=== PATIENT | male | born 1955 | race African-American/Black ===

== ENCOUNTER 2020-04-02 16:26 | Inpatient (IN) | payer OTHER ==
[~2020-04-02] VITALS: Ht 172.7 cm; Wt 68.9 kg
[2020-04-02 16:27] VITALS: BP 118/66
[2020-04-02 16:57] LABS: HCO3 25.6 mmol/L (22.0-26.0); PCO2 40.6 mmHg (35.0-45.0); PO2 74.1 mmHg (80.0-100.0); pH 7.417 (7.360-7.450); sO2 95.1 % (92.0-98.0)
[2020-04-02 17:01] LABS: ABSOLUTE NEUTROPHILS 3.7 thou/uL (1.4-8.2); BASOPHILS 0.2 % (0.0-2.0); HEMATOCRIT 38.5 % (42.0-52.0); HEMOGLOBIN 12.6 gm/dL (14.0-18.0); LYMPHOCYTES 11.1 % (24.0-44.0); MCH 30.7 pg (26.0-34.0); MCHC 32.7 g/dL (28.0-37.0); MCV 93.8 fL (80.0-100.0); MONOCYTES 13.7 % (1.0-8.0); PLATELET COUNT 166 thou/uL (150-400); RDW 13.2 % (10.5-14.5)
[2020-04-02 17:06] LABS: APTT 27.5 Seconds (24.5-32.8); PROTIME 10.5 Seconds (9.3-11.4)
[2020-04-02 17:08] LABS: CALCIUM 8.4 mg/dL (8.5-10.1); CREATININE 1.9 mg/dL (0.7-1.3); POTASSIUM 4.3 mmol/L (3.5-5.1)
[2020-04-02 17:25] LABS: ALBUMIN 2.8 g/dL (3.4-5.0); TOTAL BILIRUBIN 0.7 mg/dL (0.2-1.0); TOTAL PROTEIN 8.6 g/dL (6.4-8.2); TROPONIN-I 0.11 ng/mL (<0.06)
[2020-04-02 19:02] VITALS: BP 110/56
[2020-04-02 19:26] VITALS: BP 110/56
[2020-04-02 20:00] VITALS: BP 115/63
--- NOTE | 2020-04-02 22:08 | NUR ---
PT ADMITTED THROUGH ED FROM [facility]. PT COVID POSITIVE 03/24/20 AT FACILITY. CUSTODIAL REPORTED PT HAD FEVER AND LOW O2 SAT. PT HAD RECENTLY BEEN AT [facility] FOR COVID PNEUMONIA. LUNGS COARSE, O2 PER 7L, INCREASED RR. RIGID BUE AND BLE. PT ABLE TO VERBALIZE NAME AND ANSWER AT TIMES YES OR NO. PT ONLY ALERT TO SELF. NPO, INCONTINENT, BED ALARM ON. IVF INTACT.
[2020-04-02] MEDS ORDERED: TYLENOL325 M1 PO (22:17)
[2020-04-02] MEDS ORDERED: NORVASC10 MG PO (22:18)
[2020-04-02] MEDS ORDERED: LIPITOR10 MG PO (22:19)
[2020-04-02] MEDS ORDERED: ADULT ASPIRIN R81 MG PO (22:19)
[2020-04-02] MEDS ORDERED: GABAPENTIN800 M1 PO (22:20)
[2020-04-02] MEDS ORDERED: MELOXICAM7.5 MG PO (22:21)
[2020-04-02] MEDS ORDERED: RISPERDAL0.5 MG PO (22:21)
[2020-04-02] MEDS ORDERED: DESYREL150 MG PO (22:22)
[2020-04-02] MEDS ORDERED: SERTRALINE HCL100 MG PO (22:22)
[2020-04-02] MEDS ORDERED: ASPIR-TRIN325 MG PO (22:23)
[2020-04-02] MEDS ORDERED: ZINC SULFATE220 MG PO (22:24)
[2020-04-02] MEDS ORDERED: VITAMIN D (22:27)
[2020-04-02] MEDS ORDERED: VITAMIN C500 M2 PO (22:28)
--- NOTE | 2020-04-02 23:28 | NUR ---
PT NPO NOT TAKING ORAL SCHEDULED MEDS, NOT GIVING REMDESIVIR PER ELEVATED LFT PER PHARMACY.
[2020-04-03] VITALS (10 sets, daily range): BP systolic 107–121; BP diastolic 67–79
--- NOTE | 2020-04-03 01:30 | NUR ---
O2 PER NC INCREASED TO 10L BY RESPIRATORY 02 SAT 91%.
[2020-04-03 05:47] LABS: ABSOLUTE NEUTROPHILS 4.7 thou/uL (1.4-8.2); BASOPHILS 0.2 % (0.0-2.0); HEMATOCRIT 36.3 % (42.0-52.0); HEMOGLOBIN 11.7 gm/dL (14.0-18.0); LYMPHOCYTES 10.4 % (24.0-44.0); MCH 30.7 pg (26.0-34.0); MCHC 32.3 g/dL (28.0-37.0); MCV 94.9 fL (80.0-100.0); MONOCYTES 6.7 % (1.0-8.0); PLATELET COUNT 164 thou/uL (150-400); POLYS 82.7 % (36.0-66.0); RBC 3.82 mil/uL (4.50-6.00); RDW 13.3 % (10.5-14.5); WBC 5.7 thou/uL (4.0-11.0)
[2020-04-03 05:59] LABS: URINE BILIRUBIN NEGATIVE (Negative); URINE BLOOD 2+ (Negative); URINE CLARITY CLEAR; URINE COLOR YELLOW; URINE GLUCOSE-RANDOM* NEGATIVE (Negative); URINE KETONES NEGATIVE (Negative); URINE LEUKOCYTES-REFLEX NEGATIVE (Negative); URINE NITRITE-REFLEX NEGATIVE (Negative); URINE PROTEIN (DIPSTICK) 3+ (Negative); URINE SPECIFIC GRAVITY >= 1.030 (1.005-1.035)
[2020-04-03 06:34] LABS: CASTS None Seen /LPF (None Seen); SQUAMOUS 0-3 Few /LPF (0-3)
[2020-04-03 06:35] LABS: BACTERIA-REFLEX 1-9 Few /HPF (None Seen); CRYSTALS None Seen /LPF (None Seen); MUCUS 4-6 Moderate strn/LPF (None Seen); URINE RBC 0-2 Rare /HPF (0-2); URINE WBC-REFLEX 0-5 Rare /HPF (0-5)
[2020-04-03 06:57] LABS: ALBUMIN 2.4 g/dL (3.4-5.0); CALCIUM 8.1 mg/dL (8.5-10.1); CREATININE 1.9 mg/dL (0.7-1.3); POTASSIUM 4.5 mmol/L (3.5-5.1); TOTAL BILIRUBIN 0.4 mg/dL (0.2-1.0); TOTAL PROTEIN 7.9 g/dL (6.4-8.2)
--- NOTE | 2020-04-03 07:01 | EKG ---
[place] [address] [facility] [place] [address] ELECTROCARDIOGRAM REPORT Name: BEVERLY COLE Room #: 352-P ADM IN M.R.#: [id number] Admission: 04/02/20 Attend Phys: Ivan Garza MD Discharge: Date of : 57 Report #: [id number] [facility] ED Test Date: 2020-04-02 Test Time: 16:49:34 Pat Name: BEVERLY COLE Department: Room: [facility] Gender: M Dandy Tender: kf : 1955 Requested By: Rajeev Menon Order Number: [id number] : Barry Johnson Measurements Intervals Miller Rate: 75 P: 1 OH: 189 QRS: -36 QRSD: 92 T: -5 QT: 368 QTc: 411 Interpretive Statements Sinus rhythm Atrial premature complex Left ventricular hypertrophy Borderline T abnormalities, inferior leads No previous ECG available for comparison Electronically Signed On 04-03-2020 7:00:51 HIDE SHAKER by Barry Johnson [email or web address] <ELECTRONICALLY SIGNED> By: Barry Johnson MD, [facility] 04/03/20 0700 [id number] [id number] Barry Johnson MD, FACC /EPI
[2020-04-03 10:36] LABS: ALBUMIN 2.4 g/dL (3.4-5.0); CALCIUM 7.8 mg/dL (8.5-10.1); CREATININE 1.6 mg/dL (0.7-1.3); DIRECT BILIRUBIN 0.2 mg/dL (<0.1-0.2); PHOSPHORUS 3.9 mg/dL (2.5-4.9); POTASSIUM 4.1 mmol/L (3.5-5.1); TOTAL BILIRUBIN 0.5 mg/dL (0.2-1.0); TOTAL PROTEIN 7.2 g/dL (6.4-8.2)
[2020-04-03 12:01] LABS: BE(vivo) 1.5 mmol/L (-2 to +3); PCO2 40.5 mmHg (35.0-45.0); pH 7.425 (7.360-7.450); sO2 70.3 % (92.0-98.0)
--- NOTE | 2020-04-03 13:21 | NUR ---
INITIAL ASSESSMENT: Received consult. NITISH reviewed chart and spoke with nursing and attending physician. Pt was admitted from [facility] due to COVID pneumonia. Pt had positive test on 03/24. Pt place in Enhanced Isolation. Pt is afebrile and on 10-15L of O2. Pt placed on bipap earlier today. Pt is on IV abx and IV steroids. PT has been started on Remdesivir and Ivermectin. Pt with hx of dementia. NITISH spoke with pt's brother, Jairo, via phone. Introduced role of NITISH. Pt has lived at [facility] for about a year. Pt was living at [facility] prior to moving to [facility]. Pt's brother states that pt has been estranged from his family. Pt with hx of ETOH abuse. 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 Pt is and has grown children. Pt has been homeless. Pt has not had contact with his family for a number of years. Pt's brother, Jairo, is involved and supportive. Pt's friend, Chiara, listed on face sheet. Jairo requests this info to be removed as Chiara is not involved in pt's life. NITISH spoke with registration to have face sheet updated. Faxed info to registration. NITISH updated pt's nurse. NITISH faxed clinical info to [facility] for review. NITISH spoke with EVERARDO Frausto at [facility] to provide update. Plan is for pt to return to [facility] when medically stable. NITISH is following to assist as needed with discharge planning.
--- NOTE | 2020-04-03 17:09 | NUR ---
PT ARRIVED TO THE ICU AT 1645. PT WAS ACCOMPANIED BY RT, RN AND SUPERINTENDENT AMMUNITION STORAGE. PT ON 100% BIPAP. ORDER FOR CENTRAL LINE RECEIVED FROM JUAN. ARSALANZAC MARTINEZ WAS GIVEN ICU TELEPHONE NUMBER, PT PRIVACY CODE AND EXPLAINED VISITATION POLICIES.
[2020-04-03 17:23] LABS: BE(vivo) 0.4 mmol/L (-2 to +3); HCO3 24.6 mmol/L (22.0-26.0); PO2 144.5 mmHg (80.0-100.0); pH 7.429 (7.360-7.450); sO2 98.9 % (92.0-98.0)
--- NOTE | 2020-04-03 17:27 | NUR ---
RN ASSUMED PT'S CARE AT 0700AM, PT IS A&OX1 ( PERSON), PT IS CONFUSED AT TIME, PT CAN FOLLOW SOME COMMANDS, RN HAD CALLED HOSPITAL DR TO REPORT PT'S LOW O2SAT WITH O2 10L/MIN/NC, AND ABNORMAL ABG PO2 36 ( VERY LOW), NEW ORDER RECEIVED ,PT STARTED BIPAP WITH O2 100%, PEEP 8.0, LASIX 40MG IV X1 TIME, PT'S O2SAT KEEP AT 92-95% AT MOST OF TIME, BUT PT DE-SAT AT TIME, PT TRANSFERED TO ICU BED 236 AT 1700PM, RN HAD CALLED PT'S FAMILY TO UPDAT PT'S INFORMATION.
--- NOTE | 2020-04-03 20:48 | NUR ---
VAT CONSULTED FOR CVAD.PT VERY RESTLESS, HAD ASSISTANCE POSITIONING PT FOR CVAD. PT'S LABS,MEDS,HX,ORDER AND CONSENT VERIFIED. LIJ WAS WIDLEY PATENT WITH USG, MEASURED 28%. 25CM 6FR TL JACC INSERTED 7CM EXTERNAL THEN DID 1ST CXR LINE CROSSED MIDLINE, POWER FLUSHED TO REPOSITION 2ND CXR SAME RESULTS. 3RD REPOSITION WITH POWER FLUSH,3RD CXR JUNCTION OF SVC. RELEASED FOR IMMEDIATE USE PER PROTOCOL.
--- NOTE | 2020-04-03 22:58 | HC ---
[facility] [place] [address] CONSULTATION Name: BEVERLY COLE Room #: 236-P ADM IN M.R.#: [id number] Admission: 04/02/20 Attend Phys: Ivan Garza MD Discharge: Date of : 57 Report #: [id number] THIS REPORT FOR: cc: FAM - Family physician unknown FAM - Family physician unknown Mukul Rowe MD ~ DATE OF SERVICE: 04/02/2020 INFECTIOUS DISEASE CONSULTATION REASON FOR CONSULTATION: I was asked to evaluate concerning COVID-19 pneumonia and respiratory failure. HISTORY OF PRESENT ILLNESS: The patient is a 64-year-old transferred from [facility] memory unit where he is cared for due to his dementia. Diagnosed with COVID-19 on 03/24/2020. He had progressive shortness of breath and noted to be hypoxic on 04/02/2020, therefore, brought into the Emergency Room for further evaluation. The patient was unable to give me further details. Review of the chart and discussed with nursing staff. He has had minimal cough. No hemoptysis. No nausea, vomiting or diarrhea. Unclear if he has had much headache. He has had no pleuritic chest pain, placed on high flow oxygen through the Emergency Room. Hemodynamically, he has remained stable. He did have acute kidney injury and evidence of hepatitis. No prior history of such. Unclear if he has been vaccinated. REVIEW OF SYSTEMS: A 14-point review of system was negative other than what has been described above. ALLERGIES: None known. MEDICATIONS: As noted on his MAR, which was reviewed. PAST MEDICAL HISTORY: Dementia, hypertension. FAMILY HISTORY: Not available. SOCIAL HISTORY: Currently unknown. He is a smoker of cigarettes and uses much alcohol. Currently, he is not as he is institutionalized. PHYSICAL EXAMINATION: VITAL SIGNS: He was afebrile and hemodynamically stable. He was on 6 liters of oxygen per nasal cannula. SKIN: Without rash or decubitus. No palpable adenopathy, was of normal weight. HEENT: Eyes without scleral icterus. NECK: Supple. [facility] [address] [place] [address] CONSULTATION Name: BEVERLY COLE Basilia Room #: 236-P ADM IN M.R.#: [id number] Admission: 04/02/20 Attend Phys: Ivan Garza MD Discharge: Date of : 57 Report #: [id number] LUNGS: Clear anteriorly with coarse breath sounds posteriorly with no consolidation. Most of his changes were in the bases. HEART: Regular, without murmur, gallop or rub. ABDOMEN: Soft, nontender, no hepatosplenomegaly or mass appreciated. BACK: Nontender with no CVA tenderness elicited. EXTREMITIES: Without clubbing, cyanosis or edema. External genitalia with no mass or lesion. Had an indwelling Saenz catheter in place. He was able to move all extremities. PSYCHIATRIC: Mood appeared calm. LABORATORY STUDIES: Reviewed. MICROBIOLOGY: Reviewed. IMAGING: Chest x-ray reviewed. IMPRESSION: A 64-year-old with underlying dementia with bilateral pulmonary infiltrates, COVID-19 pneumonia and respiratory failure, suspect developing severe acute respiratory syndrome. Other consideration would be a component of aspiration and healthcare-associated pneumonia. He has acute kidney injury and evidence of hepatitis. RECOMMENDATION: We will continue with broad-spectrum antibiotic coverage. Due to his COVID-19 diagnosis 9 days ago, we will treat for rapidly progressive respiratory failure in the setting of COVID-19. We will use anti-inflammatory and antiviral therapy. We will monitor his renal function and liver function tests daily. He is at risk for further respiratory decline. He will be maintained on the COVID isolation unit for fluid management, follow up laboratory studies and chest x-ray. <ELECTRONICALLY SIGNED> By: Mukul Rowe MD 04/03/20 2258 [id number] 2253 Mukul Rowe MD /nt
[2020-04-04] VITALS (72 sets, daily range): BP systolic 98–138; BP diastolic 55–84
[2020-04-04 05:07] LABS: HEMOGLOBIN 11.1 gm/dL (14.0-18.0); MCHC 31.8 g/dL (28.0-37.0); MCV 94.4 fL (80.0-100.0); RBC 3.71 mil/uL (4.50-6.00); WBC 14.8 thou/uL (4.0-11.0)
[2020-04-04 05:32] LABS: ALBUMIN 2.5 g/dL (3.4-5.0); CALCIUM 8.4 mg/dL (8.5-10.1); CREATININE 1.6 mg/dL (0.7-1.3); DIRECT BILIRUBIN 0.1 mg/dL (<0.1-0.2); PHOSPHORUS 4.2 mg/dL (2.6-4.7); POTASSIUM 3.9 mmol/L (3.5-5.1); TOTAL BILIRUBIN 0.3 mg/dL (0.2-1.0); TOTAL PROTEIN 7.8 g/dL (6.4-8.2)
[2020-04-04 07:09] LABS: HIV ANTIBODY Non Reactive (Non Reactive)
--- NOTE | 2020-04-04 09:07 | NUR ---
SPOKE WITH PT'S BROTHER, JUAN, AND PT'S SISTER HARRISON ON CONFERENCE CALL. UPDATE PROVIDED WITH REASSURANCES AND EMOTIONAL SUPPORT. HARRISON STATED SHE WOULD TRY TO OBTAIN AN IPHONE FROM A FAMILY MEMBER TO ENABLE A FACETIME VISIT.
--- NOTE | 2020-04-04 09:56 | NUR ---
WOUND CONSULT; THE PATIENT IS IN ICU. CURRENTLY IN RESTRAINTS. THE PATIENT IS ABLE TO COMMUNICATE AT A LOW LEVEL AND CAN ASSIST WITH TURNING TO A DEGREE. THERE ARE MULTIPLE AREAS CONSISTANT WITH DEEP TISSUE INJURY. DESCOLORED, WITH IRREGUALAR BOARDERS. THESE AREAS ARE INTACT. tHE RN TODAY NOTED A SCROTUM WOUND. MY ASSESSMENT OF THE SCRTUM WAS NEGATIVE. THE SCROTUM ARE HAS A GREAT FUNGAL ODOR. I DISCUSSED WITH THE RN ABOUT WARM SOAPY WATER CLEANING OF THE SCROTUM, DRY COMPLETLY REPEAT DAILY. RECOMMENDATIONS; -Q2H TURNING -BARRIER CREAM TO SACRUM/BUTTOCKS BID/PRN -WARM SOAPY WATER TO THE SCROTUM,DRY COMPLETLY/DAILY,PRN DISCUSSED WITH RN
--- NOTE | 2020-04-04 10:43 | NUR ---
chart review. unable to visit with pt rt converse on ppe, and he requiring bipap support. noted he from [facility]. cm provided verbal update to jina " oh before at [facility] he was told has covid but did not start any tx for him and he got sick then was sent to you. he was completely independent prior to dx of covid"/cesar. no anticipated dc over the weekend, will cont following as needed for dc needs.
--- NOTE | 2020-04-04 17:33 | NUR ---
PT ON OPTIFLOW AT MAX SETTINGS. TOLERATING FAIRLY, BUT MAY NEED BIPAP AT NIGHT. PT PLACED ON A MODIFIED DIET DUE TO SWALLOWING IMPAIRMENT. DR. PRATT ORDERED TPN TO SUPPLEMENT HIS NUTRITION. PT IS AWAKE AND ALERT, ASKING FOR SPRITE OR 7UP. RESTRAINTS REMAIN DUE TO PT INTERFERENCE WITH LINES/TUBES. OVERALL, PT PROGRESSING TOWARD GOALS.
[2020-04-05] VITALS (95 sets, daily range): BP systolic 125–155; BP diastolic 61–85
[2020-04-05 04:37] LABS: HEMATOCRIT 34.1 % (42.0-52.0); HEMOGLOBIN 10.8 gm/dL (14.0-18.0); MCH 30.2 pg (26.0-34.0); MCHC 31.7 g/dL (28.0-37.0); MCV 95.4 fL (80.0-100.0); RBC 3.57 mil/uL (4.50-6.00); RDW 13.4 % (10.5-14.5); WBC 13.5 thou/uL (4.0-11.0)
[2020-04-05 04:59] LABS: ALBUMIN 2.4 g/dL (3.4-5.0); CALCIUM 8.4 mg/dL (8.5-10.1); CREATININE 1.3 mg/dL (0.7-1.3); DIRECT BILIRUBIN 0.2 mg/dL (<0.1-0.2); PHOSPHORUS 3.4 mg/dL (2.5-4.9); TOTAL BILIRUBIN 0.3 mg/dL (0.2-1.0); TOTAL PROTEIN 7.4 g/dL (6.4-8.2)
--- NOTE | 2020-04-05 09:51 | NUR ---
Nutrition: If pt to remain NPO due to respiratory status, REC increase TPN to 75 mL/hr to meet needs.
--- NOTE | 2020-04-05 16:47 | NUR ---
04/05/20 PATIENT TRANSITIONED FROM BIPAP TO OPTIFLOW EARLY IN SHIFT. TOLERATING WELL BUT INTERMITENT SEVERE AGITATION. AROUND 1600 PATIENT ACUTELY WORSENED WITH O2 SATURATIONS IN THE LOW 80'S AND HEART RATE IN THE 30'S. DR. PRATT AND DR. MADERA BOTH PAGED AT THIS TIME. PATIENT THEN HAD SEVERE AGITATION EPISODE REQUIRING MULTIPLE STAFF MEMBERS TO PLACE BIPAP ON PATIENT. DR. PRATT AT BEDSIDE AND SPEAKING WITH PATIENT'S FAMILY REGARDING POSSIBLE INTUBATION. PER DR. PRATT WE WILL DEFER INTUBATION AT THIS TIME. PATIENT REMAINS ON BIPAP AND OXYGEN SATURATIONS HAVE RECOVERED. PATIENT REMAINS BRADYCAARDIC WITH HEART RATE IN THE 70'S, DR. PRATT AWARE. TPN TO BE INCREASED TO 75CC/ HOUR AT 1999. WILL CONTINUE TO MONITOR.
--- NOTE | 2020-04-05 19:12 | NUR ---
04/05/20 PATIENT TRANSITIONED FROM BIPAP TO OPTIFLOW EARLY IN SHIFT. TOLERATING WELL. PATIENT HAVING INTERMITENT SEVERE AGITATION. AROUND 1600 PATIENT ACUTELY WORSENED WITH O2 SATURATIONS IN THE LOW 80'S AND HEART RATE IN THE 30'S. DR. PRATT AND DR. MADERA BOTH PAGED AT THIS TIME. PATIENT THEN HAD SEVERE AGITATION EPISODE REQUIRING MULTIPLE STAFF MEMBERS TO PLACE BIPAP ON PATIENT. DR. PRATT AT BEDSIDE AND SPEAKING WITH PATIENT'S FAMILY REGARDING POSSIBLE INTUBATION. PER DR. PRATT WE WILL DEFER INTUBATION AT THIS TIME. PATIENT REMAINS ON BIPAP AND OXYGEN SATURATIONS HAVE RECOVERED. PATIENT REMAINS BRADYCARDIC WITH HEART RATE IN THE 40'S, DR. PRATT AWARE. 1700: HEART RATE REMAINS IN THE 40'S. DR. PRATT AWARE AND ORDERED ATROPINE IF NEEDED. PATIENT UNABLE TO TOLERATE COMING OFF BIPAP TO TAKE 1800 PO MEDS. SISTER HARRISON CALLED AND UPDATED. SHE WISHES TO FACETIME WITH PATIENT AT 1930. TPN TO BE INCREASED TO 75CC/ HOUR TONIGHT AT 1999.
[2020-04-06] VITALS (67 sets, daily range): BP systolic 101–155; BP diastolic 58–98
[2020-04-06 04:37] LABS: HEMATOCRIT 33.1 % (42.0-52.0); HEMOGLOBIN 10.7 gm/dL (14.0-18.0); MCH 30.7 pg (26.0-34.0); MCHC 32.4 g/dL (28.0-37.0); MCV 94.8 fL (80.0-100.0); RBC 3.49 mil/uL (4.50-6.00); RDW 12.8 % (10.5-14.5); WBC 14.5 thou/uL (4.0-11.0)
[2020-04-06 04:48] LABS: ALBUMIN 2.4 g/dL (3.4-5.0); CALCIUM 8.3 mg/dL (8.5-10.1); CREATININE 1.2 mg/dL (0.7-1.3); DIRECT BILIRUBIN 0.2 mg/dL (<0.1-0.2); PHOSPHORUS 3.8 mg/dL (2.5-4.9); POTASSIUM 4.3 mmol/L (3.5-5.1); TOTAL BILIRUBIN 0.4 mg/dL (0.2-1.0)
--- NOTE | 2020-04-06 11:00 | NUR ---
Dr. Martínez here. update given. Reported d5w still infusing. States he will leave up to attending.
--- NOTE | 2020-04-06 12:30 | NUR ---
Dr. Vasquez here. Pt combative at times, reaching for central line and bipap despite restraints. Moaning when cares. Pt gets very upset when this RN tries to do oral care. old blood in mouth. Titrating up on f102 at times when pt gets upset. RT aware. Currently on 80%.
--- NOTE | 2020-04-06 15:50 | NUR ---
pt ablt to face time with his brother Jairo. Update given. Emotional support given.
--- NOTE | 2020-04-06 16:20 | NUR ---
pt calmer post ativan. 02 sats better will titrate back down to 70%.
[2020-04-07] VITALS (46 sets, daily range): BP systolic 104–170; BP diastolic 62–90
[2020-04-07 05:37] LABS: HEMATOCRIT 35.9 % (42.0-52.0); HEMOGLOBIN 11.5 gm/dL (14.0-18.0); MCV 93.8 fL (80.0-100.0); RBC 3.83 mil/uL (4.50-6.00); RDW 12.9 % (10.5-14.5)
[2020-04-07 05:51] LABS: ALBUMIN 2.3 g/dL (3.4-5.0); CALCIUM 8.4 mg/dL (8.5-10.1); DIRECT BILIRUBIN 0.2 mg/dL (<0.1-0.2); PHOSPHORUS 3.2 mg/dL (2.5-4.9); POTASSIUM 4.6 mmol/L (3.5-5.1); TOTAL BILIRUBIN 0.4 mg/dL (0.2-1.0)
--- NOTE | 2020-04-07 07:27 | NUR ---
Pt not progressing toward goals at this time. Placed on Precedex gtt at 2200 which helped pt keep calm and allowed RT to titrate FiO2 down from 80% to 60%. However pt became extremely bradycardic, down to 33 bpm, so Precedex turned off at 0600. By 0630 pt was awake and attempting to take off bipap mask despite restraints, very tachypnic at 38-42 breaths per min, sat dropped to 84%. Pt given Lorazapam 0.5 mg IVP and FiO2 titrated up to 70% to maintain sat >90%. Pt much calmer now, sat up to 96%, respirations down to 23. Heart rate 38-45.
--- NOTE | 2020-04-07 14:21 | EKG ---
[place] [address] [facility] [place] [address] ELECTROCARDIOGRAM REPORT Name: BEVERLY COLE Room #: 236-P ADM IN M.R.#: [id number] Admission: 04/02/20 Attend Phys: Ivan Garza MD Discharge: Date of : 57 Report #: [id number] [facility] Test Date: 2020-04-07 Test Time: 12:36:35 Pat Name: BEVERLY COLE Department: Room: 236 P Gender: M Automatic Outsole Cutter: : 1955 Requested By: Darin Vasquez Order Number: [id number] MD: Moiz Sanchez Measurements Intervals Redford Rate: 51 P: 6 IN: 210 QRS: -24 QRSD: 113 T: -6 QT: 474 QTc: 437 Interpretive Statements Sinus bradycardia Borderline intraventricular conduction delay Nonspecific T abnormalities, inferior leads Compared to ECG 04/02/2020 16:49:34 Atrial premature complex(es) no longer present Electronically Signed On 04-07-2020 14:20:50 PART TIME by Moiz Sanchez [email or web address] <ELECTRONICALLY SIGNED> By: Moiz Sanchez MD, [facility] 04/07/20 1420 1236 1236 Moiz Sanchez MD, [facility] /EPI
--- NOTE | 2020-04-07 19:20 | NUR ---
PT NOT PROGRESSING TOWARDS GOALS. PULLING BIPAP OFF DISPITE RESTRAINTS. DESATS INTO 70S QUICKLY. FOLLOWS COMMANDS AND NODS YES NO OCCASIONALLY.
--- NOTE | 2020-04-07 21:40 | NUR ---
Pt very aggitated and restles at during shift change and at beginning of shift. Unable to follow commands, attempting to sit up in bed and remove Bipap, grinding teeth and grunting/moaning. Pt spit out tooth into Bipap mask, no bleeding noted in mouth. Pt tachypnic at 32-42 breath/min, sat 86-89%. Pt given Haldol 1 mg IVP at 191 without much affect. At 2014 respiratory therapy here and adjust Bipap to 18/12 with FiO2 increased to 70%. At 2039 O2 sat still 87-89%, pt still resteless and tachypnic. Ativan 0.5 mg IVP given and FiO2 increased to 80%. Pt respiration decreased to 25, but sat still borderline at 89-90% at 2099. Discussed with respiratory therapist, increased FiO2 to 100%. O2 sat now 90-93%, respiration 22-29, pt resting comfortably.
--- NOTE | 2020-04-07 22:47 | NUR ---
Pt breathing asynchronously with Bipap, keeps dropping sat to 86-89%, when breathing with bipap sat is 94%. Heart rate 57-70, Precedex gtt started at 0.3 mcg/kg/hr.
[2020-04-08] VITALS (35 sets, daily range): BP systolic 90–168; BP diastolic 54–87
[2020-04-08 05:12] LABS: HEMATOCRIT 35.3 % (42.0-52.0); HEMOGLOBIN 11.4 gm/dL (14.0-18.0); MCH 30.1 pg (26.0-34.0); MCHC 32.2 g/dL (28.0-37.0); MCV 93.4 fL (80.0-100.0); RBC 3.78 mil/uL (4.50-6.00); RDW 12.9 % (10.5-14.5); WBC 13.7 thou/uL (4.0-11.0)
[2020-04-08 06:04] LABS: ALBUMIN 2.3 g/dL (3.4-5.0); CALCIUM 8.5 mg/dL (8.5-10.1); CREATININE 1.1 mg/dL (0.7-1.3); DIRECT BILIRUBIN 0.1 mg/dL (<0.1-0.2); PHOSPHORUS 3.2 mg/dL (2.5-4.9); POTASSIUM 4.6 mmol/L (3.5-5.1); TOTAL BILIRUBIN 0.4 mg/dL (0.2-1.0); TOTAL PROTEIN 6.7 g/dL (6.4-8.2)
[2020-04-08 09:40] LABS: T-SPOT.TB Negative
--- NOTE | 2020-04-08 11:03 | NUR ---
chart review. he requiring bipap, precedex gtt, and nutritional support. cm unable to reach contact phil listed and unable to leave message. updates to be sent to [facility]. will cont following as needed for dc needs.
--- NOTE | 2020-04-08 11:45 | NUR ---
ASSUMED CARE AT 0700. PATIENT'S BROTHER, JUAN, CALLED FROM [phone] AND HE WAS UPDATED AND EDUCATED ON THE PATIENT'S CONDITION AND PLAN OF CARE. PATIENT'S SISTER, ALANIS HOGUE, ALSO CALLED AND SHE WAS SPOKEN TO FROM [phone].
--- NOTE | 2020-04-08 18:12 | NUR ---
FAXED CLINICAL UPDATES TO [facility] P [phone]; FAX [phone]
[2020-04-09] VITALS (26 sets, daily range): BP systolic 106–176; BP diastolic 61–90
[2020-04-09 05:11] LABS: HEMATOCRIT 36.5 % (42.0-52.0); HEMOGLOBIN 11.8 gm/dL (14.0-18.0); MCH 30.1 pg (26.0-34.0); MCHC 32.4 g/dL (28.0-37.0); MCV 92.9 fL (80.0-100.0); RBC 3.93 mil/uL (4.50-6.00); RDW 12.7 % (10.5-14.5); WBC 14.8 thou/uL (4.0-11.0)
[2020-04-09 05:26] LABS: ALBUMIN 2.2 g/dL (3.4-5.0); CALCIUM 8.6 mg/dL (8.5-10.1); DIRECT BILIRUBIN 0.2 mg/dL (<0.1-0.2); PHOSPHORUS 2.8 mg/dL (2.5-4.9); POTASSIUM 4.6 mmol/L (3.5-5.1); TOTAL BILIRUBIN 0.4 mg/dL (0.2-1.0); TOTAL PROTEIN 6.8 g/dL (6.4-8.2)
--- NOTE | 2020-04-09 05:46 | NUR ---
ASSUMED CARE AT 1900. REMOVED WRIST RESTRAINTS AT 2014 AND COMPLETED INTERVENTION; PT WAS RESTLESS EARLY IN SHIFT BUT DID NOT INTERFERE W/ANY LINES OR BIPAP. SLIGHT INCREASE TO PRECEDEX DRIP MINIMIZED RESTLESS BEHAVIORS. PT WOULD OPEN EYES AND GRUNT/MOAN BUT DID NOT MAKE ANY COHERENT SPEECH. CONTINUED TO HAVE BRADYCARDIA OVERNIGHT, HR IN 40'S. BP VARIED THROUGHOUT NIGHT, SOMETIMES SBP RISING TO 160'S THEN COMING BACK DOWN. THIS AM AFTER BATH, PT HAD LOW TEMP READING, COVERED W/WARM BLANKETS; WILL RECHECK AND PLACE BAREHUGGER NEEDED. NOT PROGRESSING TOWARDS GOALS, WILL CONTINUE TO MONITOR.
--- NOTE | 2020-04-09 10:30 | NUR ---
brother- Jairo Mcconnell called to inquire regarding pt status. updated including pt requiring large amount of 02- 90% on bipap. not following commands although he is on necessary medication to allow him to be calm/relax (precedex) to tolerate the bipap, which may affect his ability to follow commands. temperature was significantly low during the night, warming blanket applied with pt temperature rising to normal level. although pt passed his swallow study, he is having trouble trying to take meds therefore medications by mouth are being held at this time. all questions answered to satisfaction.
--- NOTE | 2020-04-09 11:43 | NUR ---
WOUND CARE F/U; THE BUTTOCKS DTI IS STABLE. LIKELY IT WILL NOT ADVANCE. NO CHANGES TO THE POC AT THIS POINT. DISCUSSED WITH RN.
[2020-04-10] VITALS (29 sets, daily range): BP systolic 94–187; BP diastolic 49–88
[2020-04-10 04:56] LABS: HEMATOCRIT 36.6 % (42.0-52.0); HEMOGLOBIN 11.8 gm/dL (14.0-18.0); MCH 30.2 pg (26.0-34.0); MCHC 32.3 g/dL (28.0-37.0); MCV 93.5 fL (80.0-100.0); RBC 3.92 mil/uL (4.50-6.00); RDW 12.9 % (10.5-14.5); WBC 16.7 thou/uL (4.0-11.0)
[2020-04-10 05:06] LABS: ALBUMIN 2.2 g/dL (3.4-5.0); CALCIUM 8.5 mg/dL (8.5-10.1); DIRECT BILIRUBIN 0.1 mg/dL (<0.1-0.2); PHOSPHORUS 3.3 mg/dL (2.5-4.9); POTASSIUM 4.4 mmol/L (3.5-5.1); TOTAL BILIRUBIN 0.4 mg/dL (0.2-1.0); TOTAL PROTEIN 6.4 g/dL (6.4-8.2)
--- NOTE | 2020-04-10 06:32 | NUR ---
ASSUMED CARE 1900. PT MORE RESTLESS OVERNIGHT, RESTRAINTS ON AND DOCUMENTED PER PROTOCOL. RT DECREASED FIO2 TO 80% AROUND 2300; SATS WERE 90-93%. 0245-PT'S SISTER ALANIS CALLED FOR UPDATE, GAVE CODE. UPDATED ABOUT MENTAL STATUS, USE OF RESTRAINTS AND GTTs, AND VS. NO CONCERNS NOTED DURING CONVERSATION. MAINTAINED TEMP SLIGHTLY BETTER OVERNIGHT, DID NOT REQUIRE BAREHUGGER. CONTINUED TO BE MARQUEZ IN 40'S. AFTER BATH, SBP WAS ELEVATED 160-180, BUT GRADUALLY CAME DOWN BACK TO 130'S. NO OTHER CONCERNS.
--- NOTE | 2020-04-10 10:00 | NUR ---
new order noted for dr scruggs consult. will cont following as needed for dc needs.
--- NOTE | 2020-04-10 18:19 | NUR ---
ON BIPAP ALL DAY, VITALS STABLE. MUMBLES INCOMPREHENSIBLE WORD WHEN TURNED. TPN FOR NUTRITION. KING WITH [employer]DEQA[employer] OUTPUT. PATIENT'S BROTHER CALLED FOR AN UPDATE AND QNS ANSWERED. ASSESSMENT COMPLETED. DR. NIELSON CONSULT CALLED IN AND STATED HE WILL COME ROUND ON PATIENT TOMORROW.
[2020-04-11] VITALS (29 sets, daily range): BP systolic 102–152; BP diastolic 64–87
[2020-04-11 06:33] LABS: CALCIUM 8.3 mg/dL (8.5-10.1); CREATININE 0.9 mg/dL (0.7-1.3); MAGNESIUM 1.9 mg/dL (1.8-2.4); PHOSPHORUS 3.9 mg/dL (2.6-4.7); POTASSIUM 4.6 mmol/L (3.5-5.1)
--- NOTE | 2020-04-11 07:24 | NUR ---
1944-RT INCREASED FIO2 TO 100% O2 SATS WERE LINGERING AROUND 89-90% AND PT APPEARED UNCOMFORTABLE; SATS IMPROVED TO MID-90'S. RESTRAINTS REMOVED AT 2100, PT MOVED VERY LITTLE THROUGHOUT THE NIGHT; WOULD STILL MOAN/GROAN, AND LOOK AROUND THE ROOM BUT OTHERWISE VERY LITTLE ACTIVITY. 614-PT'S SISTER ALANIS CALLED, ASKED ABOUT NEXT STEPS; GAVE UPDATE AND DISCUSSED CONSULT TO DR. NIELSON, THAT HE WOULD BE ASSESSING PT TODAY AND LIKELY CALL HER AND HER BROTHER TO DISCUSS PLAN. NO OTHER CONCERNS, SHIFT REPORT GIVEN AT 0700.
--- NOTE | 2020-04-11 15:37 | NUR ---
5680-RECEIVED PHONE CALL FROM PERSON STATING HE WAS THE SON. DID NOT KNOW 4 DIGIT CODE. ENCOURAGED HIM TO CALL JUAN, & NO INFORMATION GIVEN. SON WOULD NOT GIVE HIS NAME. HE STATED HE WAS COMING TO SEE PT. INSTRUCTED HE WOULD NOT BE ALLOWED IN.--VW
[2020-04-12] VITALS (38 sets, daily range): BP systolic 99–154; BP diastolic 54–86
--- NOTE | 2020-04-12 10:10 | NUR ---
chart review, he cont to requirer bipap support. has prn for air hunger. he is dnr. cm spoke with phil smiley via phone call. no question or concerns voiced. cm active listen and support " most of his kids now. we know it is not good and might have to be making some hard things. we don't have iphones so had to go to [facility] to face time but glade i was able to do that. dr's have douglas calling and we know is lungs are full. thank you for all you are doing. did not give his kids the code."/phil. will cont following as needed for dc needs. no anticipated weekend dc. jina has been updated.
--- NOTE | 2020-04-12 14:36 | NUR ---
THIS PRACTICE PERFORMANCE MANAGER CALLED JUAN. I OFFERED SUPPORT AND PRAYER FOR BEVERLY KEBEDE
--- NOTE | 2020-04-12 17:41 | NUR ---
patient not making progress towards dismissal goals. patient increased to 100% fio2 on bipap today. spoke with dpoa brother phil about patient status. brother plans to come visit tomorrow if allowed. told brother to call before leaving to check if patient can have visitors. patient taken out of covid isolation today. patient given morphine and ativan for anxiety and airhunger today.
[2020-04-13] VITALS (30 sets, daily range): BP systolic 99–135; BP diastolic 63–78
[2020-04-13 05:37] LABS: CALCIUM 8.5 mg/dL (8.5-10.1); MAGNESIUM 2.1 mg/dL (1.8-2.4); PHOSPHORUS 3.8 mg/dL (2.5-4.9); POTASSIUM 4.7 mmol/L (3.5-5.1)
--- NOTE | 2020-04-13 06:04 | NUR ---
PATIENT REMAINS ON 100% FIO2 ON BIPAP. PATIENT IS SOMNOLENT WITH PRECEDEX AND REQUIRING MORPHINE PRN FOR AIR HUNGER. PATIENT IS NOT PROGRESSING TOWARDS GOALS.
--- NOTE | 2020-04-13 16:29 | NUR ---
ASSUMED CARE AT 0700. PATIENT'S BROTHER, JUAN, CAME TO VISIT FROM [phone]. PATIENT SPOKE WITH DR. PRATT IN PERSON AND WAS UPDATED AND EDUCATED ON THE PATIENT'S CONDITION AND PLAN OF CARE. PATIENT NOT PROGRESSING TOWARDS THE PLAN OF CARE EVIDENCED BY CONTINUED HIGH OXYGEN DEMANDS AND WORSENING OXYGENATION.
[2020-04-14] VITALS (24 sets, daily range): BP systolic 107–128; BP diastolic 67–79
--- NOTE | 2020-04-14 03:14 | NUR ---
ASSUMED PATIENT CARE AT 2300.
--- NOTE | 2020-04-14 05:12 | NUR ---
PATIENTS BREATHING SEEMS MORE LABORED SHIFT HAS PROGRESSED. PRN MORPHINE GIVEN MULTIPLE TIMES FOR AIR HUNGER TO LIMITED AFFECT. BREATHING PATTERN IRREGULAR AND TACHYPNIC.
--- NOTE | 2020-04-14 13:51 | NUR ---
PT'S DPOA, JUAN, UPDATED AT APPROXIMATELY 1300. PER HIM DR PRATT AND HIM DISCUSSED COMFORT MEASURES AND AGREED TO REMOVE BIPAP ON SATURDAY 04/15 AT 1700. HE WAS MADE AWARE OF VISITATION POLICIES. HE EXPRESSED HIS CONCERN GIVEN THAT PT HAS 6 KIDS THAT WANT TO SEE HIM. WILL CONTINUE TO MONITOR PT.
[2020-04-15] VITALS (18 sets, daily range): BP systolic 76–111; BP diastolic 44–72
--- NOTE | 2020-04-15 06:53 | NUR ---
Pt will moan at times. RR up to 40's. Morphine and Ativan given for air hunger. Bipap at 100%. 02sat 90-94%. Not progressing toward goals. Cont plan of care
--- NOTE | 2020-04-15 07:28 | NUR ---
ASSUMED CARE OF THE PT, WAS TOLD PALLIATIVE WILL BE PURSUED AT 1700 THIS EVENING. HR AT 60s O2 90 RR 20 MAP 71. WAS TOLD ATIVAN WAS MORE EFFECTIVE. PROBLEM CONCERNING TODAY IS THE VISITATION GUIDELINE, WAS TOLD BY MANAGEMENT TO ADHERE TO STRICT CURRENT GUIDELINE. WAS TOLD THAT FOUR VISITORS ARE ALLOWED TWO AT A TIME BUT PT HAS SIX CHILDREN. WILL REVIEW THIS WITH THE CUTTING MACHINE OPERATOR HELPER TODAY TO FORMULATE AN APPROPERIATE RESPONSE. MTN WILL BE NOTIFIED TODAY.
--- NOTE | 2020-04-15 09:30 | NUR ---
chart review, he remains on 100% bipap, prn given for comfort, ativan and fentanyl noted in notes. family possible going to come in when approved to palliative remove bipap for comfort care. will cont following as needed for dc needs.
--- NOTE | 2020-04-15 13:29 | NUR ---
WOUND CARE F/U; A FOLLOW UP ATTEMT WAS MADE. THE RN INFORMED ME THAT THE PATIENTS FAMILY WAS PRESENT AND THEY WERE WITHDRAWING CARE. I INSTRUCTED THE RN TO RECONSULT WOUND CARE IF ANY CONCERN ARISES.
--- NOTE | 2020-04-15 20:09 | NUR ---
ASSUMED CARE OF PATIENT AT 1900. UPON ASSESSMENT PATIENT BECAME APNIC AND HEART WENT ASYSTOLE. TIME OF CALLED AT 191 BY THIS RN AND Zana VAZQUEZ RN. GAUGE OPERATOR, NURSE PRACTITIONER, FAMILY NOTIFIED. ALL PAPERWORK FILLED OUT REQUIRED.
== END 2020-04-15 19:19 | DRG 871 ==
LOC: ER 16:26 → EROBS 18:02 → 3W 18:02 → ICU 18:02 → 3W 19:35 → ICU 04-03 16:29
PROVIDERS: Emergency Medicine; Hospitalist; Internal Medicine Pulmonary Disease; Specialist; ADMIT Hospitalist; ATTEND Hospitalist
PROC: 02HV33Z Insertion of Infusion Device into Superior Vena Cava, Percutaneous Approach (ICD-10-PCS; principal; 2020-04-03)
PROC: XW033E5 Introduction of Remdesivir Anti-infective into Peripheral Vein, Percutaneous Approach, New Technology Group 5 (ICD-10-PCS; principal; 2020-04-03)
PROC: 5A09357 Assistance with Respiratory Ventilation, Less than 24 Consecutive Hours, Continuous Positive Airway Pressure (ICD-10-PCS; principal; 2020-04-03)
PROC: 5A09357 Assistance with Respiratory Ventilation, Less than 24 Consecutive Hours, Continuous Positive Airway Pressure (ICD-10-PCS; 2020-04-04)
PROC: 5A0935A Assistance with Respiratory Ventilation, Less than 24 Consecutive Hours, High Flow/Velocity Cannula (ICD-10-PCS; 2020-04-04)
PROC: 5A0935A Assistance with Respiratory Ventilation, Less than 24 Consecutive Hours, High Flow/Velocity Cannula (ICD-10-PCS; 2020-04-05)
PROC: 5A09357 Assistance with Respiratory Ventilation, Less than 24 Consecutive Hours, Continuous Positive Airway Pressure (ICD-10-PCS; 2020-04-05)
PROC: 5A0935A Assistance with Respiratory Ventilation, Less than 24 Consecutive Hours, High Flow/Velocity Cannula (ICD-10-PCS; 2020-04-06)
PROC: 5A09557 Assistance with Respiratory Ventilation, Greater than 96 Consecutive Hours, Continuous Positive Airway Pressure (ICD-10-PCS; 2020-04-06)
DX: A41.89 Other specified sepsis (principal); U07.1 COVID-19; J12.82 Pneumonia due to coronavirus disease 2019; J80 Acute respiratory distress syndrome; N17.9 Acute kidney failure, unspecified; E87.1 Hypo-osmolality and hyponatremia; F03.91 Unspecified dementia, unspecified severity, with behavioral disturbance; E46 Unspecified protein-calorie malnutrition; I10 Essential (primary) hypertension; F17.210 Nicotine dependence, cigarettes, uncomplicated; E86.9 Volume depletion, unspecified; K75.9 Inflammatory liver disease, unspecified; E55.9 Vitamin D deficiency, unspecified; Z51.5 Encounter for palliative care; Z66 Do not resuscitate; Z68.23 Body mass index [BMI] 23.0-23.9, adult
CPT/HCPCS: 10078; 10879